=== PATIENT | female | born 1985 | race Two or more races ===

== ENCOUNTER → 2019-09-26 11:03 | Outpatient (CLI) | payer MEDICAID, SELFPAY ==
[2019-09-26 11:06] LABS: Microscopic, Urine URINE MICROSCOPIC (MICROSCOPIC)
[2019-09-26 11:26] LABS: Appearance,Urine CLEAR (Clear); Bilirubin,Urine Negative (Negative); Blood, Urine Negative (Negative); Color,Urine YELLOW (Yellow); Glucose,Urine (UA) Negative (Negative); Ketones,Urine Negative (Negative); Leukocyte Esterase,Urine TRACE (Negative); Nitrate,Urine Negative (Negative); Protein,Urine Negative (Negative); Urobilinogen,Urine 0.2 EU/dl (0.2)
[2019-09-26 11:37] LABS: Bacteria,Urine 1+ /lpf; Mucus,Urine 1+ /lpf
[2019-09-26 11:54] LABS: Basophils % 0.3 % (0.1-2.0); Eosinophils # 0.2 K/mm3 (0.0-0.4); Eosinophils % 1.7 % (0.1-12.0); Hematocrit 42.9 % (37.0-47.0); Hemoglobin 14.6 g/dL (12.2-16.2); Lymphocytes # 2.2 K/mm3 (0.7-4.5); Lymphocytes % 24.8 % (10-50); Mean Corpuscular Hemoglobin 30.6 pg (27.0-31.2); Mean Corpuscular Volume 90.2 fl (81-99); Mean Platelet Volume 9.3 fl (7.4-10.4); Monocytes # 0.3 K/mm3 (0.1-1.0); Monocytes % 3.5 % (1.7-9.3); Neutrophils # 6.2 K/mm3 (1.8-7.8); Neutrophils % 69.7 % (37.0-80.0); Platelet Count 221 K/mm3 (142-424); Red Blood Count 4.76 M/mm3 (4.20-5.40); Red Cell Distribution Width 12.9 % (11.5-17.5); White Blood Count 8.9 K/mm3 (4.8-10.8)
[2019-09-26 12:32] LABS: Anion Gap 14.1 mEq/L (5-15); Blood Urea Nitrogen 5 mg/dl (7-17); Calcium 9.2 mg/dl (8.4-10.2); Carbon Dioxide 27 mmol/L (22.0-30.0); Chloride 104 mmol/L (98-107); Estimated Glomerular Filt Rate 183 ml/min (>60); GFR (African American) 221 ML/MIN (>60); Glucose 191 mg/dl (74-100); Potassium 4.1 mmoL/L (3.5-5.1); Sodium 141 mmol/L (136-145)
[2019-09-26 15:11] LABS: Coronavirus 19 IgG Antibody Negative (Negative); Coronavirus 19 IgM Antibody Negative (Negative)
[2019-09-26 18:58] LABS: Urine Pregnancy, HCG Qual. Negative (Negative)
== END ==
PROVIDERS: Visit Provider Surgery
DX: Z01.818 Encounter for other preprocedural examination (principal); K42.0 Umbilical hernia with obstruction, without gangrene; K46.9 Unspecified abdominal hernia without obstruction or gangrene
CPT/HCPCS: 36415; 80048; 81001; 81025; 85025; 86328

== ENCOUNTER 2019-09-27 07:37 | Day surgery (SDC) | payer MEDICAID, SELFPAY ==
[2019-09-27] VITALS (17 sets, daily range): BP systolic 108–127; BP diastolic 58–84; PULSE 57–76; RESP 10–18; TEMP 36.3–43; O2SAT 90–98; BMI 39.4
[2019-09-27 08:14] LABS: POC Glucose,Bedside 229 (70-110)
--- NOTE | 2019-09-27 11:13 | HMH.OPNOTE ---
Date of procedure: 09/27/19 Pre-op Diagnosis:: Incarcerated umbilical hernia Post-op Diagnosis:: Incarcerated umbilical hernia Procedure performed:: Laparoscopic-assisted open repair of incarcerated umbilical hernia Surgeon:: Dennys Medrano MD MIXING PLANT DUMPER:: Sarthak Calderon Anesthesia: GETA Estimated blood loss (mL): 15 Operative findings:: 2 cm defect Incarcerated omentum Repair completed with 6.4 cm VentraLex plug/mesh Operative note:: After informed consent was obtained the patient was taken to the operating room and placed in the supine position. General anesthesia was induced and her abdomen was prepped and draped in a sterile fashion. After infiltration local anesthetic a small stab incision was made in the left upper quadrant. A Veress needle was placed in position. The abdomen was insufflated. A 5 mm optical trocar was placed in the left mid flank. The periumbilical region was carefully evaluated. An obvious herniation with incarcerated omentum was noted. A 5 mm trocar was placed at the Veress needle insertion site after slightly elongating the incision. A combination of external compression and careful dissection with laparoscopic bowel graspers was utilized to free the incarcerated omentum. No obvious incarcerated small bowel or colon noted. A 2 cm defect was apparent. After infiltration with local anesthetic a supraumbilical incision was made. The deeper subcutaneous tissue was dissected with a combination of scalpel, electrocautery, and blunt dissection. The hernia sac was carefully resected with electrocautery. A 12 mm trocar was placed through the defect and the 6.4 cm VentraLex plug/mesh was then secured in position after being placed through the trocar. The mesh/plug was secured with interrupted 0 Ethibond. The fascial defect was then closed primarily over the mesh with 0 Ethibond. The wound was thoroughly irrigated. The umbilical stump was reapproximated with interrupted Vicryl. Skin was then closed with interrupted 4-0 Monocryl. The skin at the trocar sites was also closed in a similar manner. Dressings were applied and the patient was transferred to recovery in stable condition after extubation. Condition: stable Disposition: PACU Specimens:: None Complications:: No immediate
--- NOTE | 2019-09-27 11:24 | HMH.ANESCL ---
[facility] Anesthesia Checklist - Patient Identification Patient Identification: Arm Band, Verbal (Name & ) - Structural Data Admitted From: Home Planned Operative Procedure/s: Laparoscopic umbilical hernia with Mesh Consent for Planned Operative Procedure(s) Verified: Yes Verified Documents: Surgical Consent, History and Physical - NPO Status Verified Time NPO: 00:00 - Chart Verification Results Verified: None - Additional verifications Fingerstick Blood Glucose: 229 Patient : No Anesthesia Reactions: No Hx Blood Transfusions: No Blood Transfusion Reaction: No - Airway Assessment C-Spine Mobility Assessed: Yes TMJ Mobility Assessed: Yes Dentition: Poor Dentition (Loose front tooth, missing teeth) - Neurological Assessment Level of Consciousness: Awake, Alert, Appropriate, Follows Commands Hx Seizures: No Numbness or tingling in extremities: No - Anesthesia Plan Anesthesia Risk discussed: Yes Anesthesia Plan: Verified ASA Class: III Anesthesia Type: General [facility] History I have reviewed the patient's past medical history: Yes Medical History: Reports:: Diabetes Mellitus Type 2, Hyperlipidemia Denies:: Cancer, Diabetes Mellitus Type 1, Internal Pacemaker, MRSA, Seizures *Have you ever received a pneumonia vaccine?: No *Have you received a flu vaccine this season?: No Other Medical History: Denies: Blood Transfusion Reaction Comment:: morbid obesity Anesthesia experience/problems:: None Other Surgeries: Yes: No Previous Surgery. No: Pacemaker Amputation: No - *Social History Last grade of school completed: 5th or 6th Smoking Status: Never smoker # Packs/Day (cigarettes): 0 #Yrs smoked (if former smoker): 0 Alcohol Intake: never Alcohol Intake Frequency:: other Substance Use Type: denies use *Occupational Status:: unemployed Housing: house Household Members: spouse *Travel in the last 8 weeks: None Family Hx:: Diabetes
--- NOTE | 2019-09-27 11:26 | P.PN_ITS ---
[facility] Anesthesia Record Part I Intake, IV Amount: 900 Estimated blood loss (mL): 10 Urine output (mL): 0 (NM) Blood Products used (#): none Blood Pressure: 122/84 SaO2: 93 Pulse Rate: 76 Respiratory Rate: 10 Temperature: 97.5 F Patient is:: Drowsy, Nasal O2, Stable Stable to PACU at:: 11:20
[2019-09-27 11:39] LABS: POC Glucose,Bedside 221 (70-110)
--- NOTE | 2019-09-27 18:56 | HMH.ANESII ---
[facility] Anesthesia Record Part II Discharge Time: 11:50 Destination: Surgical Day Care (OP Surgery) PACU nurse assessment reviewed?: Yes Patient Condition:: Good Anesthesia Complications:: None Swallowing reflex intact?: Yes Cyanosis?: No Blood Pressure: 108/72 Pulse Rate: 66 Temperature: 97.5 F Mental Status: Alert & Oriented Pain level:: 5 Nausea and/or vomitting:: None Intake, IV Amount: 0 (normovolemia)
== END 2019-09-27 13:10 | disposition home or self-care (01) ==
LOC: OR 07:39
PROVIDERS: PCP Nurse Practitioner Family; Visit Provider Surgery
PROC: 0WQF4ZZ Repair Abdominal Wall, Percutaneous Endoscopic Approach (ICD-10-PCS; CPT 49653; principal; 2019-09-27 09:00)
DX: K42.0 Umbilical hernia with obstruction, without gangrene (principal); E11.9 Type 2 diabetes mellitus without complications; E78.5 Hyperlipidemia, unspecified
CPT/HCPCS: 49653; 82962; 96374; C1781; J2405; J2710

== ENCOUNTER 2020-06-19 21:03 | Emergency (ER) | payer OTHER, SELFPAY ==
[2020-06-19 22:15] VITALS: BP 130/104; PULSE 98; RESP 16; TEMP 36.7; O2SAT 100; BMI 44.3
[2020-06-19 23:26] LABS: Basophils % 0.3 % (0.1-2.0); Eosinophils # 0.2 K/mm3 (0.0-0.4); Eosinophils % 1.2 % (0.1-12.0); Hematocrit 42.1 % (37.0-47.0); Lymphocytes # 2.3 K/mm3 (0.7-4.5); Lymphocytes % 18.8 % (10-50); Mean Corpuscular HGB Conc 33.4 g/dL (31.8-35.4); Mean Corpuscular Hemoglobin 29.3 pg (27.0-31.2); Mean Corpuscular Volume 87.7 fl (81-99); Monocytes # 0.5 K/mm3 (0.1-1.0); Monocytes % 4.3 % (1.7-9.3); Neutrophils # 9.1 K/mm3 (1.8-7.8); Neutrophils % 75.4 % (37.0-80.0); Platelet Count 255 K/mm3 (142-424); Red Cell Distribution Width 13.7 % (11.5-17.5); White Blood Count 12.1 K/mm3 (4.8-10.8)
[2020-06-19 23:31] LABS: Alanine Aminotransferase 33 U/L (12-78); Albumin Level 4.5 g/dl (3.5-5.0); Albumin/Globulin Ratio 1.3 (1.1-1.8); Alkaline Phosphatase 103 U/L (38-126); Anion Gap 9.8 mEq/L (5-15); Aspartate Amino Transferase 34 U/L (14-36); Bilirubin,Total 0.3 mg/dl (0.2-1.3); Blood Urea Nitrogen 11 mg/dl (7-17); Calcium 9.6 mg/dl (8.4-10.2); Carbon Dioxide 28 mmol/L (22.0-30.0); Chloride 106 mmol/L (98-107); Creatinine Clearance Estimated 81 mL/min (50-200); Estimated Glomerular Filt Rate 95 ml/min (>60); GFR (African American) 115 ML/MIN (>60); Globulin 3.4 g/dL (1.3-3.2); Glucose 150 mg/dl (74-100); Potassium 3.8 mmoL/L (3.5-5.1); Sodium 140 mmol/L (136-145); Total Protein,Serum 7.9 g/dl (6.3-8.2)
[2020-06-19 23:36] LABS: C-Reactive Protein 10.5 mg/L (0-4)
[2020-06-19 23:50] LABS: Procalcitonin 0.042 ng/mL (0.0-2.0)
[2020-06-19 23:52] LABS: Erythrocyte Sedimentation Rate 24 mm/hr (0-20)
--- NOTE | 2020-06-20 00:09 | HMH.EDGENADL ---
ED Disposition Clinical Impression: Lower extremity pain, bilateral Disposition: Home, Self-Care Condition on Discharge: Good Instructions: DI for Acute Pain -- Adult Additional Instructions: will do doppler in am and ask pt to see pcp for follow up Referrals: Hannah Limon [Primary Care Provider] - - Critical Care Critical Care Time: No Attestation: On 06/19/20, the high probability of a clinically significant, sudden or life threatening deterioration of the following system(s) required my full and direct attention, intervention and personal management. The time I documented below is in addition to time spent performing reported procedures but includes the following listed in this critical care notation. Medical Decision Making - Medical Records Medical records reviewed: Yes: I reviewed the patient's medical records. - Tyrese Inquiry Pt receiving controlled substance: No Vital Signs: 06/19/20 22:15 Temperature 98.1 F Temperature Source Oral Pulse Rate [Right] 98 H Respiratory Rate 16 Blood Pressure [Right Arm] 130/104 H Blood Pressure Mean [Right Arm] 112 Blood Pressure Source [Right Arm] Automatic Cuff 02 Sat by Pulse Oximetry 100 Oxygen Delivery Method Room Air - Lab Data Lab results reviewed: Yes: I reviewed the patient's lab results. Lab Results 06/19/20 22:10: WBC 12.1 H, RBC 4.80, Hgb 14.0, Hct 42.1, MCV 87.7, MCH 29.3, MCHC 33.4, RDW 13.7, Plt Count 255, MPV 9.0, Neut % (Auto) 75.4, Lymph % (Auto) 18.8, [place] % (Auto) 4.3, Eos % (Auto) 1.2, Baso % (Auto) 0.3, Neut # (Auto) 9.1 H, Lymph # (Auto) 2.3, [place] # (Auto) 0.5, Eos # (Auto) 0.2, Baso # (Auto) 0.0, ESR 24 H 06/19/20 22:10: Sodium 140, Potassium 3.8, Chloride 106, Carbon Dioxide 28, Anion Gap 9.8, BUN 11, Creatinine 0.70, Estimated Creat Clear 81, Estimated GFR 95, Est GFR ( Amer) 115, Glucose 150 H, Calcium 9.6, Total Bilirubin 0.3, AST 34, ALT 33, Alkaline Phosphatase 103, C-Reactive Protein 10.5 H, Total Protein 7.9, Albumin 4.5, Globulin 3.4 H, Albumin/Globulin Ratio 1.3, Procalcitonin 0.042 Result diagrams: 06/19/20 22:10 06/19/20 22:10 Medical Decision Narrative: will need venous doppler in am and will give lovenox tonight General Adult HPI - General Chief complaint: PAIN Stated complaint: J&J Vac feeling leg pain Time Seen by Provider: 06/20/20 00:00 Mode of Arrival: Ambulatory Source of Information: Patient, Relative, Medical Record Limitations: No Limitations Description of Symptoms (Recalled from ER Triage Doc. by RN): Pt c/o bilat leg pain that began on thursday 06/15, went away and then it came back again today and they feel swollen. No pitting edema noted. Pt is a diabetic, receives Depo for control, and received the J&J Covid vaccine on 06/04/20. She denies any trauma, falls, or h/o blood clots - History of Present Illness HPI narrative: has bilat lower ext pain over the last few days - had recent covid-19 vaccine - does use depo- no hx of dvt /pul emboli Onset (ago): day(s) Location: lower extremity Severity: moderate Associated symptoms: denies other symptoms Treatments prior to arrival: none - Related Data Home Medications Medication Instructions Recorded Confirmed Atorvastatin Calcium [Lipitor 10mg 10 mg PO HS 09/27/19 06/19/20 Tab] Metformin HCl [Glucophage Xr] 500 mg PO DAILY 09/27/19 06/19/20 Sitagliptin Phosphate [Januvia 100 mg PO DAILY 09/27/19 06/19/20 100mg tablet] Aspirin [Aspirin 81mg chewable 81 mg PO DAILY 06/19/20 06/19/20 tab] Insulin Glargine,Hum.rec.anlog 30 units SQ DAILY 06/19/20 06/19/20 [Lantus Solostar 100 Units/mL 3mL flexpen] Pioglitazone HCl 30 mg PO DAILY 06/19/20 06/19/20 Allergies Allergy/AdvReac Type Severity Reaction Status Date / Time No Known Allergies Allergy Verified 06/17/20 10:52 [facility] History - Hepatitis A Screen Drug use history?: No High risk sexual behaviors?: No History of sexually transmitted infecti
--- NOTE | 2020-06-20 00:27 | PC.NURSE ---
s/w Kevin Salmeron on-pharmcy for lovenox dosing.
[2020-06-20 00:39] VITALS: BP 125/87; PULSE 90; RESP 19; TEMP 36.9; O2SAT 99
== END 2020-06-20 00:41 | disposition home or self-care (01) ==
PROVIDERS: Emergency Provider Emergency Medicine; PCP Nurse Practitioner Family
DX: I82.401 Acute embolism and thrombosis of unspecified deep veins of right lower extremity (principal); E11.65 Type 2 diabetes mellitus with hyperglycemia; E78.5 Hyperlipidemia, unspecified; I10 Essential (primary) hypertension; Z79.899 Other long term (current) drug therapy
CPT/HCPCS: 80053; 84145; 85025; 85378; 85651; 86140; 96372; 99282

== ENCOUNTER → 2020-06-20 12:15 | Outpatient (CLI) | payer OTHER, SELFPAY ==
--- NOTE | 2020-06-20 | CA_ITS ---
APPROVED REPORT Bilateral Lower Extremity Venous Study for Cream Ripener: CN Risk Factors bilateral leg pain without swelling, Patient recieved J&J vaccine 06/07/2020, dm Past History Bilat leg pain s/p J7J vaccine 06/07/2020 Vein Imaging CFV (R): compressive, spontaneous, phasic, augmentation FEM (R): compressive, spontaneous, phasic, augmentation POP (R): compressive, spontaneous, phasic, augmentation DFV (R): compressive, spontaneous, phasic, augmentation PTV (R): Thrombus, Non-Compressible GSV (R): compressive, spontaneous, phasic, augmentation Peroneals (R):compressive, spontaneous, phasic, augmentation GAS (R): compressive, spontaneous, phasic, augmentation CFV (L): compressive, spontaneous, phasic, augmentation FEM (L): compressive, spontaneous, phasic, augmentation POP (L): compressive, spontaneous, phasic, augmentation DFV (L): compressive, spontaneous, phasic, augmentation PTV (L): compressive, spontaneous, phasic, augmentation GSV (L): compressive, spontaneous, phasic, augmentation Peroneals (L):compressive, spontaneous, phasic, augmentation GAS (L): compressive, spontaneous, phasic, augmentation Findings The right Posterior Tibial Vein is dilated with mixed echoes and is non-compressible. Color flow duplex of the right lower extremity demonstrates acute occlusive DVT involving the following Vein:Posterior Tibial. No evidence of DVT or superficial thrombophlebitis in the veins scanned of the left lower extremity. Conclusion The right Posterior Tibial Vein is dilated with mixed echoes and is non-compressible. Color flow duplex of the right lower extremity demonstrates acute occlusive DVT involving the following Vein:Posterior Tibial. No evidence of DVT or superficial thrombophlebitis in the veins scanned of the left lower extremity. Electronically signed by : Yosef Rutherford MD 06/22/2020 18:33:06
== END ==
PROVIDERS: PCP Emergency Medicine; Visit Provider Emergency Medicine
DX: M79.662 Pain in left lower leg (principal); M79.661 Pain in right lower leg; R60.0 Localized edema
CPT/HCPCS: 93970

== ENCOUNTER 2020-06-20 13:14 | Emergency (ER) | payer OTHER, SELFPAY ==
[2020-06-20 13:14] VITALS: BP 136/91; PULSE 65; RESP 16; TEMP 37.1; O2SAT 98; BMI 34.9
--- NOTE | 2020-06-20 13:16 | HMH.EDGENADL ---
ED Disposition Clinical Impression: DVT (deep venous thrombosis) Qualifiers: DVT location: lower extremity Affected thrombotic vein of extremity: popliteal Chronicity: acute Laterality: right Qualified Code(s): I82.431 - Acute embolism and thrombosis of right popliteal vein Disposition: Home, Self-Care Condition on Discharge: Fair Instructions: DI for Deep Vein Thrombosis, Apixaban Additional Instructions: You have been evaluated for right lower extremity DVT. Please take anticoagulation, Eliquis. It is very important that you follow-up with your primary care doctor in 24 to 48 hours. Return to the emergency department for any new or worsening symptoms, leg pain, swelling, color changes, chest pain, shortness of breath. Prescriptions: Apixaban [Eliquis 5mg Tablet] 10 mg PO BID 7 Days #28 tab Transmission Status: Pending to [facility] Referrals: Deshawn Cowan MD [Staff Physician] - Time of Disposition: 13:24 - Critical Care Critical Care Time: No Attestation: On , the high probability of a clinically significant, sudden or life threatening deterioration of the following system(s) required my full and direct attention, intervention and personal management. The time I documented below is in addition to time spent performing reported procedures but includes the following listed in this critical care notation. Medical Decision Making - Medical Records Medical records reviewed: Yes: I reviewed the patient's medical records. - Tyrese Inquiry Pt receiving controlled substance: No Orders (Tests/Meds): ORDERS Category Date Time Status Urine , HCG Qual. Stat Lab 06/20/20 13:16 Ordered Medical Decision Narrative: In summary this is a 35-year-old female presenting to the emergency department after finding of a right posterior popliteal DVT. She has slight tenderness to palpation over the right calf, circumference slightly larger than left. Patient has strong peripheral pulses in both feet. No color change. Overall presentation most consistent with DVT. Counseled patient that she will need to be on anticoagulation for at least 14 days if not 30 days or longer. Recommended novel oral anticoagulants. Gave her starter pack of Eliquis, 10 mg twice daily. Recommended close follow-up with her PCP. Stable for discharge. General Adult HPI - General Stated complaint: blood clot Time Seen by Provider: 06/20/20 13:16 Mode of Arrival: Ambulatory Source of Information: Patient Limitations: No Limitations - History of Present Illness HPI narrative: 35-year-old female presenting to the emergency department with right calf pain. Symptoms started 6 days ago. [place] like a sore muscle in the back of her calf, radiating toward her ankle, on the mid side. Pain has improved since onset. Now just feels like an occasional pain. No numbness, weakness, tingling in her right foot or toes. No pain higher in her leg. No skin changes. She recently started control OCP 3 days ago. Previously had Depo shots. She is G5, P5. Does not believe she is today. Was seen in our emergency department yesterday where there was concern for DVT. She had a lower extremity ultrasound performed today that revealed a right posterior popliteal DVT. No recent surgery, immobility. No history of DVT or PE. She denies family history of hypercoagulable state. Currently does not have chest pain, shortness of breath, pain in the left extremity. - Related Data Home Medications Medication Instructions Recorded Confirmed Atorvastatin Calcium [Lipitor 10mg 10 mg PO HS 09/27/19 06/19/20 Tab] Metformin HCl [Glucophage Xr] 500 mg PO DAILY 09/27/19 06/19/20 Sitagliptin Phosphate [Januvia 100 mg PO DAILY 09/27/19 06/19/20 100mg tablet] Aspirin [Aspirin 81mg chewable 81 mg PO DAILY 06/19/20 06/19/20 tab] Insulin Glargine,Hum.rec.anlog 30 units SQ DAILY 06/19/20 06/19/20 [Lantus Solostar 100 Units/mL 3mL
[2020-06-20 13:30] LABS: Urine Pregnancy, HCG Qual. Negative (Negative)
[2020-06-20 13:37] VITALS: BP 136/91; PULSE 65; RESP 16; TEMP 37.1; O2SAT 98
== END 2020-06-20 13:43 | disposition home or self-care (01) ==
PROVIDERS: Emergency Provider Emergency Medicine; PCP Nurse Practitioner Family
DX: I82.431 Acute embolism and thrombosis of right popliteal vein (principal); I10 Essential (primary) hypertension; E78.5 Hyperlipidemia, unspecified; E11.9 Type 2 diabetes mellitus without complications; Z79.4 Long term (current) use of insulin; Z79.84 Long term (current) use of oral hypoglycemic drugs; Z79.899 Other long term (current) drug therapy
CPT/HCPCS: 81025; 99282

== ENCOUNTER → 2020-09-01 08:55 | Outpatient (CLI) | payer OTHER, SELFPAY ==
--- NOTE | 2020-09-01 08:57 | CA_ITS ---
APPROVED REPORT Bilateral Lower Extremity Venous Study for DVT. Systems Support Officer: JAKE Indications Previous DVT of Right PTV 06/2019 Risk Factors Obesity Vein Imaging CFV (R): compressive, spontaneous, phasic, augmentation SFJ (R): compressive, spontaneous, phasic, augmentation FEM (R): compressive, spontaneous, phasic, augmentation POP (R): compressive, spontaneous, phasic, augmentation PTV (R): compressive, spontaneous, phasic, augmentation GSV (R): compressive, spontaneous, phasic, augmentation SSV (R): compressive, spontaneous, phasic, augmentation Peroneals (R):compressive, spontaneous, phasic, augmentation GAS (R): compressive, spontaneous, phasic, augmentation CFV (L): compressive, spontaneous, phasic, augmentation SFJ (L): compressive, spontaneous, phasic, augmentation FEM (L): compressive, spontaneous, phasic, augmentation POP (L): compressive, spontaneous, phasic, augmentation PTV (L): compressive, spontaneous, phasic, augmentation GSV (L): compressive, spontaneous, phasic, augmentation SSV (L): compressive, spontaneous, phasic, augmentation Peroneals (L):compressive, spontaneous, phasic, augmentation GAS (L): compressive, spontaneous, phasic, augmentation Findings Color flow duplex demonstrates no evidence of DVT of the following bilateral lower extremity Veins:Common Femoral Vein, Femoral Vein, Popliteal Vein, Posterior Tibial Veins, Peroneal Veins. Negative for DVT. Conclusion Negative for DVT. Electronically signed by : Yosef Rutherford MD 09/01/2020 17:00:33
== END ==
PROVIDERS: PCP Nurse Practitioner Family; Visit Provider Nurse Practitioner Family
DX: I82.401 Acute embolism and thrombosis of unspecified deep veins of right lower extremity (principal)
CPT/HCPCS: 93970

== ENCOUNTER 2021-01-01 12:55 | Inpatient (IN) | payer OTHER, SELFPAY ==
[2021-01-01] VITALS (11 sets, daily range): BP systolic 110–148; BP diastolic 63–92; PULSE 54–82; RESP 16–20; TEMP 36.7–36.9; O2SAT 96–100; BMI 43.4; BMI 42.0; BMI 43.0
--- NOTE | 2021-01-01 13:29 | XR_ITS ---
PROCEDURE: XR CHEST 2V CLINICAL HISTORY: cough Burning and tightness in chest for 2 days COMPARISON: No exams were available for comparison FINDINGS: The cardiomediastinal silhouette and pulmonary vascularity are within normal limits considering a somewhat poor inspiration in this rather large patient. The lungs are clear without infiltrates, suspicious nodules, or pleural effusions. No acute bony abnormalities. There are mild degenerate changes lower thoracic spine. IMPRESSION: No acute findings. Dictated by: Dr. Babar Michael MD 01/01/2021 13:55 Dr. Babar Michael MD in [place] 01/01/2021 13:55
--- NOTE | 2021-01-01 13:39 | HMH.EDUTC ---
[facility] Disposition Condition on Discharge: Fair Time of Disposition: 17:49 <Brenden Ibarra - Last Filed: 01/01/21 17:50> Condition on Discharge: Good <Sandi Fatima E - Last Filed: 01/01/21 19:28> Clinical Impression: NSTEMI (non-ST elevated myocardial infarction), Transaminitis Chest pain Qualifiers: Chest pain type: unspecified Qualified Code(s): R07.9 - Chest pain, unspecified Disposition: Admitted as Observation Medical Decision Making - Medical Records Medical records reviewed: Yes: I reviewed the patient's medical records. - Tyrese Inquiry Pt receiving controlled substance: No - Lab Data Lab results reviewed: Yes: I reviewed the patient's lab results. Result diagrams: 01/01/21 14:05 01/01/21 14:05 - Radiology Data #1 Image(s): Chest Image Reviewed: Yes I reviewed the patient's radiology results, Yes I have reviewed radiologist's interpretation Preliminary Findings: Normal/NAD - CT Data CT Scan: Abdomen, Pelvis Time Received: 17:00 Preliminary Findings: Abnormal - ECG Data Tracing #1 I reviewed this ECG and interpreted as documented below: ECG initial impression date: 01/01/21 ECG initial impression time: 14:03 <Brenden Ibarra - Last Filed: 01/01/21 17:50> - Tyrese Inquiry Pt receiving controlled substance: No Tyrese was queried for this patient: No - Lab Data Result diagrams: 01/01/21 14:05 01/01/21 14:05 - Radiology Data #1 Image(s): Chest Image Reviewed: Yes I have reviewed radiologist's interpretation Preliminary Findings: Normal/NAD <Sandi Fatima E - Last Filed: 01/01/21 19:28> Vital Signs: 01/01/21 13:05 01/01/21 14:00 01/01/21 14:30 Temperature 98.5 F 98.3 F Temperature Source Oral Oral Pulse Rate Pulse Rate [Left] 72 66 75 Respiratory Rate 18 16 18 Blood Pressure Blood Pressure [Right Arm] 146/83 H 148/63 H Blood Pressure Mean [Right Arm] 104 91 Blood Pressure Source Blood Pressure Source [Right Arm] Blood Pressure Position Blood Pressure Position [Right Arm] 02 Sat by Pulse Oximetry 96 98 100 Oxygen Delivery Method Room Air 01/01/21 15:17 01/01/21 16:07 01/01/21 16:39 Temperature Temperature Source Pulse Rate Pulse Rate [Left] 54 L 62 54 L Respiratory Rate 18 18 16 Blood Pressure Blood Pressure [Right Arm] 131/92 H 126/74 118/89 Blood Pressure Mean [Right Arm] 105 91 98 Blood Pressure Source Blood Pressure Source [Right Arm] Automatic Cuff Blood Pressure Position Blood Pressure Position [Right Arm] Sitting 02 Sat by Pulse Oximetry 98 98 98 Oxygen Delivery Method Room Air 01/01/21 17:17 01/01/21 17:37 01/01/21 19:01 Temperature 98.3 F Temperature Source Oral Pulse Rate 70 Pulse Rate [Left] 68 82 Respiratory Rate 16 20 16 Blood Pressure 122/70 Blood Pressure [Right Arm] 110/71 122/76 Blood Pressure Mean [Right Arm] 84 91 Blood Pressure Source Automatic Cuff Blood Pressure Source [Right Arm] Automatic Cuff Blood Pressure Position Sitting Blood Pressure Position [Right Arm] Sitting 02 Sat by Pulse Oximetry 99 98 Oxygen Delivery Method Room Air Room Air - Lab Data Lab Results 01/01/21 14:05: WBC 7.8, RBC 4.66, Hgb 14.0, Hct 42.6, MCV 91.4, MCH 30.1, MCHC 32.9, RDW 13.8, Plt Count 213, MPV 9.3, Neut % (Auto) 74.9, Lymph % (Auto) 18.3, [place] % (Auto) 4.3, Eos % (Auto) 2.0, Baso % (Auto) 0.5, Neut # (Auto) 5.8, Lymph # (Auto) 1.4, [place] # (Auto) 0.3, Eos # (Auto) 0.2, Baso # (Auto) 0.0 01/01/21 14:05: Sodium 138, Potassium 3.7, Chloride 103, Carbon Dioxide 27, Anion Gap 11.7, BUN 8, Creatinine 0.30 L, Estimated Creat Clear 198, Estimated GFR 253, Est GFR ( Amer) 306, Glucose 166 H, Calcium 8.8, Total Bilirubin 0.4, AST 86 H, ALT 103 H, Alkaline Phosphatase 127 H, Troponin I 0.03, Total Protein 7.4, Albumin 4.0, Globulin 3.4 H, Albumin/Globulin Ratio 1.2 01/01/21 16:20: Troponin I 0.44 H 01/01/21 17:50: SARS-CoV-2 (PCR) Not detected, Influenza A Untype (PCR) Not d
--- NOTE | 2021-01-01 13:42 | PC.NURSE ---
pt is now c/o chest pain. pt stated it started while she was on her way back from the radiology
--- NOTE | 2021-01-01 14:02 | ECG_ITS ---
APPROVED REPORT Exam: Resting ECG HR:52 bpm ECG Measurements Heart Rate 52 AXES MT 176 P 39 QRSd 82 QRS 18 QT 430 T 25 QTc 399 Conclusion Sinus bradycardia Otherwise normal ECG Electronically signed by : Levon Campos MD 01/02/2021 08:20:57
[2021-01-01 14:18] LABS: Basophils % 0.5 % (0.1-2.0); Eosinophils # 0.2 K/mm3 (0.0-0.4); Hematocrit 42.6 % (37.0-47.0); Lymphocytes # 1.4 K/mm3 (0.7-4.5); Lymphocytes % 18.3 % (10-50); Mean Corpuscular HGB Conc 32.9 g/dL (31.8-35.4); Mean Corpuscular Hemoglobin 30.1 pg (27.0-31.2); Mean Corpuscular Volume 91.4 fl (81-99); Mean Platelet Volume 9.3 fl (7.4-10.4); Monocytes # 0.3 K/mm3 (0.1-1.0); Monocytes % 4.3 % (1.7-9.3); Neutrophils # 5.8 K/mm3 (1.8-7.8); Neutrophils % 74.9 % (37.0-80.0); Platelet Count 213 K/mm3 (142-424); Red Blood Count 4.66 M/mm3 (4.20-5.40); Red Cell Distribution Width 13.8 % (11.5-17.5); White Blood Count 7.8 K/mm3 (4.8-10.8)
[2021-01-01 14:33] LABS: Chloride 103 mmol/L (98-107); Potassium 3.7 mmoL/L (3.5-5.1); Sodium 138 mmol/L (136-145)
[2021-01-01 14:35] LABS: Blood Urea Nitrogen 8 mg/dl (7-17); Creatinine Clearance Estimated 198 mL/min (50-200); Estimated Glomerular Filt Rate 253 ml/min (>60); GFR (African American) 306 ML/MIN (>60)
[2021-01-01 14:36] LABS: Alanine Aminotransferase 103 U/L (12-78); Albumin/Globulin Ratio 1.2 (1.1-1.8); Alkaline Phosphatase 127 U/L (38-126); Anion Gap 11.7 mEq/L (5-15); Aspartate Amino Transferase 86 U/L (14-36); Bilirubin,Total 0.4 mg/dl (0.2-1.3); Calcium 8.8 mg/dl (8.4-10.2); Carbon Dioxide 27 mmol/L (22.0-30.0); Globulin 3.4 g/dL (1.3-3.2); Glucose 166 mg/dl (74-100); Total Protein,Serum 7.4 g/dl (6.3-8.2)
[2021-01-01 14:48] LABS: Troponin I 0.03 ng/ml (0.00-0.034)
--- NOTE | 2021-01-01 14:57 | CT_ITS ---
PROCEDURE: CT ABDOMEN PELVIS W CON CLINICAL INDICATION: elevated liver enzymes COMPARISON: No exams were available for comparison TECHNIQUE: IV Contrast: 75ML Isovue 370 Oral Contrast None Axial images obtained with sagittal and coronal reformats. All CT scans at the facility use one or more dose reduction, viz: automated exposure control, ma/kV adjustment per patient size (including targeted exams where dose is matched to indication, i.e. head), or iterative reconstruction technique. FINDINGS: LOWER THORAX: Left lingular subsegmental atelectasis. 6 millimeter nodule medial basal segment left lower lobe. ABDOMEN & PELVIS: hepatic parenchyma appears unremarkable. Spleen is not enlarged. Pancreas and adrenal glands appear unremarkable. There is a right renal cyst. Bilateral ureters appear unremarkable uterus and ovaries appear unremarkable. Bladder appears unremarkable. There pelvic phleboliths. GE junction, stomach, small bowel, and colon appear unremarkable. There is no lymphadenopathy. There are mild degenerative changes of bilateral SI joints. There is lumbar spondylosis. IMPRESSION: 1. Pulmonary nodule measuring 6 millimeters within medial basal segment left lower lobe. Fleischner society guidelines (2017) recommend CT chest without contrast at 6-[address] at 18-24 months. 2. Mild degenerative changes of bilateral SI joints. 3. Lumbar spondylosis. Dictated by: Radha Begum MD 01/01/2021 15:57 Radha Begum MD in [place] 01/01/2021 15:57
[2021-01-01 17:33] LABS: Troponin I 0.44 ng/ml (0.00-0.034)
--- NOTE | 2021-01-01 17:40 | PC.NURSE ---
TAMARA CEDENO spoke with Dr. Cowan at this time
--- NOTE | 2021-01-01 17:42 | PC.NURSE ---
notified house mother of admission
--- NOTE | 2021-01-01 17:50 | HMH.EDGENADL ---
ED Disposition Clinical Impression: NSTEMI (non-ST elevated myocardial infarction), Transaminitis Chest pain Qualifiers: Chest pain type: unspecified Qualified Code(s): R07.9 - Chest pain, unspecified Disposition: Admitted as Observation Condition on Discharge: Good Referrals: Provider,Referral, [Primary Care Provider] - Time of Disposition: 17:51 - Critical Care Critical Care Time: No Attestation: On 01/01/21, the high probability of a clinically significant, sudden or life threatening deterioration of the following system(s) required my full and direct attention, intervention and personal management. The time I documented below is in addition to time spent performing reported procedures but includes the following listed in this critical care notation. Medical Decision Making - Medical Records Medical records reviewed: Yes: I reviewed the patient's medical records. - Tyrese Inquiry Pt receiving controlled substance: No Vital Signs: 01/01/21 13:05 01/01/21 14:00 01/01/21 14:30 Temperature 98.5 F 98.3 F Temperature Source Oral Oral Pulse Rate [Left] 72 66 75 Respiratory Rate 18 16 18 Blood Pressure [Right Arm] 146/83 H 148/63 H Blood Pressure Mean [Right Arm] 104 91 Blood Pressure Source [Right Arm] Blood Pressure Position [Right Arm] 02 Sat by Pulse Oximetry 96 98 100 Oxygen Delivery Method Room Air 01/01/21 15:17 01/01/21 16:07 01/01/21 16:39 Temperature Temperature Source Pulse Rate [Left] 54 L 62 54 L Respiratory Rate 18 18 16 Blood Pressure [Right Arm] 131/92 H 126/74 118/89 Blood Pressure Mean [Right Arm] 105 91 98 Blood Pressure Source [Right Arm] Automatic Cuff Blood Pressure Position [Right Arm] Sitting 02 Sat by Pulse Oximetry 98 98 98 Oxygen Delivery Method Room Air 01/01/21 17:17 01/01/21 17:37 Temperature Temperature Source Pulse Rate [Left] 68 82 Respiratory Rate 16 20 Blood Pressure [Right Arm] 110/71 122/76 Blood Pressure Mean [Right Arm] 84 91 Blood Pressure Source [Right Arm] Automatic Cuff Blood Pressure Position [Right Arm] Sitting 02 Sat by Pulse Oximetry 99 98 Oxygen Delivery Method Room Air - Lab Data Lab results reviewed: Yes: I reviewed the patient's lab results. Lab Results 01/01/21 14:05: WBC 7.8, RBC 4.66, Hgb 14.0, Hct 42.6, MCV 91.4, MCH 30.1, MCHC 32.9, RDW 13.8, Plt Count 213, MPV 9.3, Neut % (Auto) 74.9, Lymph % (Auto) 18.3, [place] % (Auto) 4.3, Eos % (Auto) 2.0, Baso % (Auto) 0.5, Neut # (Auto) 5.8, Lymph # (Auto) 1.4, [place] # (Auto) 0.3, Eos # (Auto) 0.2, Baso # (Auto) 0.0 01/01/21 14:05: Sodium 138, Potassium 3.7, Chloride 103, Carbon Dioxide 27, Anion Gap 11.7, BUN 8, Creatinine 0.30 L, Estimated Creat Clear 198, Estimated GFR 253, Est GFR ( Amer) 306, Glucose 166 H, Calcium 8.8, Total Bilirubin 0.4, AST 86 H, ALT 103 H, Alkaline Phosphatase 127 H, Troponin I 0.03, Total Protein 7.4, Albumin 4.0, Globulin 3.4 H, Albumin/Globulin Ratio 1.2 01/01/21 16:20: Troponin I 0.44 H Result diagrams: 01/01/21 14:05 01/01/21 14:05 Orders (Tests/Meds): ED MEDICATIONS Generic Name Dose Route Start Last Admin Trade Name Freq PRN Reason Stop Dose Admin Docusate Sodium 100 mg 01/02/21 09:00 Docusate Sodium 100 Mg Capsule PO 02/01/21 08:59 DAILY [facility] Enoxaparin Sodium 40 mg 01/02/21 09:00 Enoxaparin 40mg/0.4ml Syringe SQ 02/01/21 08:59 DAILY [facility] Lactated Ringer's 1,000 mls @ 100 mls/hr 01/01/21 17:45 Lactated Ringer's 1000 Ml Bag IV 01/31/21 17:44 .Q10H [facility] Insulin Human Lispro 0 unit 01/01/21 21:00 Humalog 100 Units/Ml 3ml Vial (Ssi) SQ 01/31/21 20:59 ACHS [facility] Protocol Ondansetron HCl 4 mg 01/01/21 17:40 Ondansetron 4mg/2ml Vial IV 01/31/21 17:39 Q8HP PRN Nausea Discontinued Medications Generic Name Dose Route Start Last Admin Trade Name Freq PRN Reason Stop Dose Admin Iopamidol 75 ml 01/01/21 15:37 01/01/21 15:37 Iopamidol-370
[2021-01-01 17:52] LABS: Coronavirus 19, PCR Not Detected (NotDetected); Influenza A, PCR Not Detected (NotDetected); Influenza B, PCR Not Detected (NotDetected)
--- NOTE | 2021-01-01 19:18 | PC.NURSE ---
patient up to floor via wheelchair @ this time
[2021-01-01 19:56] LABS: POC Glucose,Bedside 114 (70-110)
[2021-01-01 21:06] LABS: Troponin I 1.83 ng/ml (0.00-0.034)
--- NOTE | 2021-01-01 23:01 | CT_ITS ---
PROCEDURE INFORMATION: Exam: CTA Chest With Contrast Exam date and time: 01/01/2021 11:01 PM Age: 35 years old Clinical indication: Shortness of breath; Additional info: SOB RO pe TECHNIQUE: Imaging protocol: Computed tomographic angiography of the chest with contrast. 3D rendering (Not supervised by radiologist): MIP and/or 3D reconstructed images were created by the technologist. Radiation optimization: All CT scans at this facility use at least one of these dose optimization techniques: automated exposure control; mA and/or kV adjustment per patient size (includes targeted exams where dose is matched to clinical indication); or iterative reconstruction. Contrast material: ISOVUE 370; Contrast volume: 70 ml; Contrast route: INTRAVENOUS (IV); COMPARISON: CR XR CHEST 2V 01/01/2021 1:27 PM FINDINGS: Pulmonary arteries: Normal. No pulmonary emboli. Aorta: Unremarkable. No aortic aneurysm. No aortic dissection. Lungs: 7 mm nodule in the left lung base (image 92 series 5). No acute interstitial or airspace disease. Pleural spaces: Unremarkable. No pneumothorax. No pleural effusion. Heart: Unremarkable. No cardiomegaly. No pericardial effusion. Mediastinal space: Calcified mediastinal granulomas are of no clinical concern. Lymph nodes: Unremarkable. No enlarged lymph nodes. Liver: There is a diffuse decrease in hepatic parenchymal density, consistent with fatty infiltration. The visualized intra-abdominal structures demonstrate no acute findings. Bones/joints: No acute skeletal pathology. Moderate multilevel degenerative changes of the spine, as manifested by multilevel anterior osteophytes and multilevel decrease in intervertebral disc space. Soft tissues: Unremarkable. IMPRESSION: 1. Nonspecific 7 mm nodule in the left lung base could be related to nodular atelectasis versus a true pulmonary nodule. For patients at low risk (minimal or absent history of smoking and of other known risk factors), recommend CT Chest at 6-12 months, then consider CT Chest at 18-24 months. For patients at high risk (history of smoking or of other known risk factors), recommend CT Chest at 6-12 months, then CT Chest at 18-24 months. (Reference: Moar) 2. Negative for acute thoracic pathology. REFERENCES: Mora Dangelo et al. Guidelines for Management of Incidental Pulmonary Nodules Detected on CT Images: From the Fleischner Society 2017. Radiology. 2017;284(1):228-243.
[2021-01-02] VITALS (17 sets, daily range): BP systolic 107–154; BP diastolic 53–92; PULSE 51–80; RESP 15–20; TEMP 36.1–36.8; O2SAT 94–98; BMI 43.0
--- NOTE | 2021-01-02 | IR_ITS ---
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 COMPLICATIONS NONE Estimated Blood Loss: LESS THAN 10 ML TECHNIQUE One percent lidocaine used to anesthetize the right anterior aspect of the wrist. The right radial artery was accessed via the Seldinger technique. A 6 Chadian sheath was placed in the right radial artery. 2.5 mg of verapamil, 800 mcg of nitroglycerin, 1mg Lidocaine and 5000 U Heparin were given through the arterial sheath. The 6 Chadian Poppa catheter and 6 Chadian J L3 catheter were also used to perform left heart catheterization, left ventriculogram and selective coronary angiogram. At the end of the procedure the sheath was removed good hemostasis was achieved using Traclet band, patient was transferred to the postop holding area in stable condition. ANGIOGRAPHIC RESULTS The left main artery Normal The left anterior descending artery Normal The circumflex artery Normal The right coronary artery Dominant normal The CHRISTIANSON ventriculogram reveals Normal 65% The left ventricular end-diastolic pressure 20 mmHg IMPRESSION Normal coronary arteries Normal ejection fraction Mildly elevated LVEDP PLAN 1. Etiology for the elevated troponin is uncertain. It is possible patient's having a mild form of myocarditis. Recommend supportive care with use of KAYLA inhibitor's and beta-blockers 2. Continue aggressive risk factor modification 3. Follow-up in cardiology clinic within the next week Electronically signed by : Kenton Lyles MD 01/02/2021 11:00:23
[2021-01-02 05:56] LABS: POC Glucose,Bedside 162 (70-110)
[2021-01-02 06:49] LABS: Basophils % 0.5 % (0.1-2.0); Eosinophils # 0.2 K/mm3 (0.0-0.4); Eosinophils % 2.4 % (0.1-12.0); Hematocrit 41.1 % (37.0-47.0); Hemoglobin 13.2 g/dL (12.2-16.2); Lymphocytes % 26.1 % (10-50); Mean Corpuscular HGB Conc 32.1 g/dL (31.8-35.4); Mean Corpuscular Hemoglobin 29.5 pg (27.0-31.2); Mean Platelet Volume 9.7 fl (7.4-10.4); Monocytes # 0.3 K/mm3 (0.1-1.0); Monocytes % 4.3 % (1.7-9.3); Neutrophils % 66.6 % (37.0-80.0); Platelet Count 207 K/mm3 (142-424); Red Blood Count 4.46 M/mm3 (4.20-5.40); Red Cell Distribution Width 13.8 % (11.5-17.5); White Blood Count 7.5 K/mm3 (4.8-10.8)
--- NOTE | 2021-01-02 06:50 | PC.NURSE ---
Addendum entered by Dunia Díaz RN 01/02/21 06:53: continues on RA with no c/o soa. Original Note: pt has rested majority of this shift. a&ox4. uses the bathroom independently. no c/o pain or discomfort voiced this shift.
[2021-01-02 06:56] LABS: Chloride 104 mmol/L (98-107); Potassium 3.6 mmoL/L (3.5-5.1); Sodium 138 mmol/L (136-145)
[2021-01-02 06:58] LABS: Blood Urea Nitrogen 6 mg/dl (7-17); Creatinine Clearance Estimated 148 mL/min (50-200); Estimated Glomerular Filt Rate 182 ml/min (>60); GFR (African American) 220 ML/MIN (>60)
[2021-01-02 06:59] LABS: Anion Gap 9.6 mEq/L (5-15); Calcium 8.6 mg/dl (8.4-10.2); Carbon Dioxide 28 mmol/L (22.0-30.0); Cholesterol 137 mg/dl (140-200); Glucose 166 mg/dl (74-100); Triglycerides 73 mg/dl (30-150); VLDL Cholesterol 15 mg/dL (0-40)
[2021-01-02 07:00] LABS: Chol/HDL Ratio 3.1 (1-3.5); HDL Cholesterol 44 mg/dl (40-60)
[2021-01-02 07:05] LABS: INR 1.01 (0.9-1.1); Prothrombin Time 11.4 seconds (10.1-12.5)
[2021-01-02 07:10] LABS: Direct LDL Cholesterol 83.01 mg/dL (100-129)
[2021-01-02 07:14] LABS: Troponin I 1.65 ng/ml (0.00-0.034)
--- NOTE | 2021-01-02 08:01 | HMH.DCSUM ---
General - General Admission date:: 01/01/21 Discharge date: 01/02/21 HPI HPI: this patient presented 5yo F sent to the emergency department from the urgent treatment clinic secondary to chest pain and some epigastric pain. Patient reports this started earlier today. She reports it is intermittent. She denies any shortness of breath. She denies any breaking out into cold sweat. States the pain starts in the around her right collarbone and radiates down substernal and into her epigastric region. She denies any history of cardiac disease, no coronary stents. Patient has never been a smoker. She is a diabetic. She reports her blood sugars typically run in the 170s to 180s. Routine cardiac work-up is initiated. CBC is benign. Metabolic panel reveals elevated AST, ALT, alk phos. Acute liver panel was added on but there is a send out so not beneficial today. Initial troponin was 0.03. Repeat troponin was ordered and the patient was sent for CT abdomen pelvis given her transaminitis. Abdomen pelvis films reveal a 6 mm left lower lobe nodule that needs follow-up as an outpatient. EKG benign as above. Repeat troponin is 0.44. Patient will obviously need to be admitted for NSTEMI and further monitoring. 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 - Hospital Course Hospital Course: pt with cath- Objective Vital signs: Temp Pulse Resp BP Pulse Ox 97.5 F L 56 L 17 148/64 H 98 01/02/21 04:00 01/02/21 04:00 01/02/21 04:00 01/02/21 04:00 01/02/21 04:00 Results Labs on day of discharge: Labs from last 24 hours 01/02/21 01/02/21 01/02/21 06:13 06:13 06:13 WBC RBC Hgb Hct MCV MCH MCHC RDW Plt Count MPV Neut % (Auto) Lymph % (Auto) [place] % (Auto) Eos % (Auto) Baso % (Auto) Neut # (Auto) Lymph # (Auto) [place] # (Auto) Eos # (Auto) Baso # (Auto) PT 11.4 INR 1.01 Sodium 138 Potassium 3.6 Chloride 104 Carbon Dioxide 28 Anion Gap 9.6 BUN 6 L Creatinine 0.40 L D Estimated Creat Clear 148 Estimated GFR 182 Est GFR ( Amer) 220 D Glucose 166 H POC Glucose Calcium 8.6 Total Bilirubin AST ALT Alkaline Phosphatase Troponin I 1.65 H Total Protein Albumin Globulin Albumin/Globulin Ratio Triglycerides 73 Cholesterol 137 L LDL Cholesterol Direct 83.01 L VLDL Cholesterol 15 HDL Cholesterol 44 Cholesterol/HDL Ratio 3.1 SARS-CoV-2 (PCR) Influenza A Untype (PCR) Influenza Type B (PCR) 01/02/21 01/02/21 01/01/21 06:13 05:17 20:25 WBC 7.5 RBC 4.46 Hgb 13.2 Hct 41.1 MCV 92.0 MCH 29.5 MCHC 32.1 RDW 13.8 Plt Count 207 MPV 9.7 Neut % (Auto) 66.6 Lymph % (Auto) 26.1 [place] % (Auto) 4.3 Eos % (Auto) 2.4 Baso % (Auto) 0.5 Neut # (Auto) 5.0 Lymph # (Auto) 2.0 [place] # (Auto) 0.3 Eos # (Auto) 0.2 Baso # (Auto) 0.0 PT INR Sodium Potassium Chloride Carbon Dioxide Anion Gap BUN Creatinine Estimated Creat Clear Estimated GFR Est GFR ( Amer) Glucose POC Glucose 162 H Calcium Total Bilirubin AST ALT Alkaline Phosphatase Troponin I 1.83 H Total Protein Albumin Globulin Albumin/Globulin Ratio Triglycerides Cholesterol LDL Cholesterol Direct VLDL C
--- NOTE | 2021-01-02 08:41 | P.CONPHA_ITS ---
[facility] Pharmacy VTE Monitoring - Patient Demographics Admission date: 01/02/21 Report Date: 01/02/21 Time: 08:41 Allergies/Adverse Reactions: Patient Allergies No Known Allergies Allergy (Verified 01/01/21 14:08) Height: 1.55 m Weight: 103.419 kg Patient Problems: Current Active Problems NSTEMI (non-ST elevated myocardial infarction) (Acute) Transaminitis (Acute) Chest pain (Acute) - VTE Risk Labs: VTE Related Lab Results Hgb 13.2 g/dL (12.2-16.2) 01/02/21 06:13 Hct 41.1 % (37.0-47.0) 01/02/21 06:13 Plt Count 207 K/mm3 (142-424) 01/02/21 06:13 PT 11.4 seconds (10.1-12.5) 01/02/21 06:13 INR 1.01 (0.9-1.1) 01/02/21 06:13 BUN 6 mg/dl (7-17) L 01/02/21 06:13 Creatinine 0.40 mg/dl (0.52-1.04) L D 01/02/21 06:13 Estimated Creat Clear 148 mL/min (50-200) 01/02/21 06:13 VTE Score: 2 - Prophylaxis Types of VTE Prophylaxis: IPCS Knee High (ICDS ORDERED) Location of Applied Device: Bilateral Lower Extremeties
--- NOTE | 2021-01-02 09:53 | ECG_ITS ---
APPROVED REPORT Exam: Resting ECG HR:63 bpm ECG Measurements Heart Rate 63 AXES NC 150 P 35 QRSd 90 QRS 32 QT 410 T 37 QTc 419 Conclusion Normal sinus rhythm Normal ECG Electronically signed by : Levon Campos MD 01/03/2021 09:04:33
[2021-01-02 10:22] LABS: HCG Qualitative, Serum Negative (Negative)
--- NOTE | 2021-01-02 16:11 | HMH.HPDC ---
General - General Admission date:: 01/01/21 Discharge date: 01/02/21 *Admission Date: 01/02/21 *Chief complaint: chest pain *History of present illness: 35yo F sent to the emergency department from the urgent treatment clinic secondary to chest pain and some epigastric pain. Patient states this started earlier yesterday. She states pain comes and goes, denies any shortness of breath. States the pain starts in the around her right collarbone and radiates down substernal and into her epigastric region. She denies any history of cardiac disease, no coronary stents. She is a diabetic. Patient reports that she had a blood clot back around May or June and she was put on medication and when she went back for her follow up they told her it was gone. while in [facility] patient was coming back from xray she was holding her left breast area and rubbing her chest and reports that she is now having chest pain more so in the left chest area that started after she got the xray States feels like something is wrong in there . patient admitted fr chest pain and discussed with dr kay [facility] History I have reviewed the patient's past medical history: Yes Medical History: Reports:: Deep Vein Thrombosis, Diabetes Mellitus Type 2, Hyperlipidemia, Hypertension Denies:: Cancer, Diabetes Mellitus Type 1, Internal Pacemaker, MRSA, Seizures *Have you ever received a pneumonia vaccine?: No *Have you received a flu vaccine this season?: Yes Other Medical History: Denies: Blood Transfusion Reaction Other Surgeries: Yes: No Previous Surgery, Hernia Repair. No: Pacemaker Amputation: No Fractures: No - *Social History Last grade of school completed: 5th or 6th Smoking Status: Never smoker # Packs/Day (cigarettes): 0 #Yrs smoked (if former smoker): 0 Alcohol Intake: never Alcohol Intake Frequency:: other Substance Use Type: denies use *Occupational Status:: unemployed Housing: house Household Members: spouse *Travel in the last 8 weeks: None Family Hx:: No significant family history Review of Systems - Review of Systems Review of systems:: pertinent systems reviewed and negative unless documented below - Constitutional Denies body ache(s) - Eyes Denies blurry vision - ENT Denies bleeding gums - *Cardiovascular Reports chest pain, Reports chest pain at rest, Reports chest pain with activity, Denies shortness of breath - *Respiratory Denies change in phlegm color - *Gastrointestinal Denies bloating - *Genitourinary Denies abnormal vaginal bleeding - *Musculoskeletal Denies decreased muscle mass - Integumentary/Breasts Denies rash - *Neurologic Denies abnormal hearing, Denies dizziness - Psychiatric Denies lack of enjoyment - Endocrine Denies rapid, pounding, or irregular heartbeat - Hematologic/Lymphatic Denies easy bruising - Allergic/Immunologic Denies itchy eyes Exam Vital signs and Labs for Last 24 Hours: Temp Pulse Resp BP Pulse Ox 97 F L 67 20 117/82 94 L 01/02/21 11:15 01/02/21 11:15 01/02/21 11:15 01/02/21 11:15 01/02/21 11:15 Laboratory Results - last 24 hr 01/01/21 16:20: Troponin I 0.44 H 01/01/21 17:50: SARS-CoV-2 (PCR) Not detected, Influenza A Untype (PCR) Not detected, Influenza Type B (PCR) Not detected 01/01/21 19:45: POC Glucose 114 H 01/01/21 20:25: Troponin I 1.83 H 01/02/21 05:17: POC Glucose 162 H 01/02/21 06:13: WBC 7.5, RBC 4.46, Hgb 13.2, Hct 41.1, MCV 92.0, MCH 29.5, MCHC 32.1, RDW 13.8, Plt Count 207, MPV 9.7, Neut % (Auto) 66.6, Lymph % (Auto) 26.1, [place] % (Auto) 4.3, Eos % (Auto) 2.4, Baso % (Auto) 0.5, Neut # (Auto) 5.0, Lymph # (Auto) 2.0, [place] # (Auto) 0.3, Eos # (Auto) 0.2, Baso # (Auto) 0.0 01/02/21 06:13: PT 11.4, INR 1.01 01/02/21 06:13: Sodium 138, Potassium 3.6, Chloride 104, Carbon Dioxide 28, Anion Gap 9.6, BUN 6 L, Creatinine 0.40 L D, Estimated Creat Clear 148, Estimated GFR 182, Est GFR ( Amer) 220 D, Glucose 166 H, Calcium 8.6, Triglycerides 73,
[2021-01-02 21:49] LABS: POC Glucose,Bedside 152 (70-110)
[2021-01-03 08:12] LABS: Hep A Ab, IgM Negative (Negative); Hepatitis B Core Antibody IgM Negative (Negative); Hepatitis B Surface Antigen Negative (Negative); Hepatitis C Antibody <0.1 s/co ratio (0.0-0.9)
== END 2021-01-02 18:30 | disposition home or self-care (01) | DRG 287 ==
LOC: UTC 13:02 → ER 13:50 → 2ND 01-02 07:19
PROVIDERS: Internal Medicine; Admitting Provider Emergency Medicine; Emergency Provider Family Medicine; Visit Provider Emergency Medicine
PROC: 4A023N7 Measurement of Cardiac Sampling and Pressure, Left Heart, Percutaneous Approach (ICD-10-PCS; principal; 2021-01-02 10:00)
DX: I51.4 Myocarditis, unspecified (principal); Z68.41 Body mass index [BMI] 40.0-44.9, adult; E11.9 Type 2 diabetes mellitus without complications; Z79.4 Long term (current) use of insulin; E78.5 Hyperlipidemia, unspecified; I10 Essential (primary) hypertension; R00.1 Bradycardia, unspecified; E66.01 Morbid (severe) obesity due to excess calories; Z86.718 Personal history of other venous thrombosis and embolism
CPT/HCPCS: 36415; 71046; 71275; 74177; 80048; 80053; 80061; 80074; 82962; 84484; 84703; 85025; 85610; 93005; 93458; 99152; 99285; C1725; C1760; C1769; C1894; C9803; J1644; Q9967; U0003; U0005

== ENCOUNTER → 2021-02-10 12:46 | Outpatient (CLI) | payer OTHER, SELFPAY ==
[2021-02-10 13:23] LABS: Urine Pregnancy, HCG Qual. Negative (Negative)
== END ==
PROVIDERS: Visit Provider Surgery
DX: Z01.812 Encounter for preprocedural laboratory examination (principal); Z11.52 Encounter for screening for COVID-19; R19.09 Other intra-abdominal and pelvic swelling, mass and lump
CPT/HCPCS: 81025; C9803; U0003; U0005

== ENCOUNTER 2021-02-12 07:16 | Day surgery (SDC) | payer OTHER, SELFPAY ==
[2021-02-08 12:55] VITALS: BMI 43.0
[2021-02-12] VITALS (11 sets, daily range): BP systolic 109–145; BP diastolic 43–81; PULSE 63–721; RESP 12–18; TEMP 36.3–38; O2SAT 93–99
--- NOTE | 2021-02-12 09:46 | HMH.ANESCL ---
[facility] Anesthesia Checklist - Structural Data Admitted From: Home Planned Operative Procedure/s: excision umbilical nodule Consent for Planned Operative Procedure(s) Verified: Yes - Additional verifications Anesthesia Reactions: No Hx Blood Transfusions: No Blood Transfusion Reaction: No - Airway Assessment C-Spine Mobility Assessed: Yes TMJ Mobility Assessed: Yes Dentition: Poor Dentition - Neurological Assessment Level of Consciousness: Awake, Alert, Appropriate - Anesthesia Plan Anesthesia Risk discussed: Yes Anesthesia Plan: Verified ASA Class: II Anesthesia Type: General [facility] History I have reviewed the patient's past medical history: Yes Medical History: Reports:: Deep Vein Thrombosis, Diabetes Mellitus Type 2, Hyperlipidemia, Hypertension Denies:: Cancer, Diabetes Mellitus Type 1, Internal Pacemaker, MRSA, Seizures *Have you ever received a pneumonia vaccine?: No *Have you received a flu vaccine this season?: Yes Other Medical History: Denies: Blood Transfusion Reaction Anesthesia experience/problems:: none Other Surgeries: Yes: No Previous Surgery, Hernia Repair, Other. No: Pacemaker Amputation: No Fractures: No - *Social History Smoking Status: Never smoker # Packs/Day (cigarettes): 0 #Yrs smoked (if former smoker): 0 Alcohol Intake: never Alcohol Intake Frequency:: other Substance Use Type: denies use *Occupational Status:: unemployed Housing: house Household Members: spouse *Travel in the last 8 weeks: None Family Hx:: No significant family history
--- NOTE | 2021-02-12 10:27 | P.OP_ITS ---
Date of procedure: 02/12/21 Pre-op Diagnosis:: Umbilical mass/nonhealing proud flesh (status post umbilical hernia repair with Ventralex mesh) Post-op Diagnosis:: Same Procedure performed:: Excision of nonhealing proud flesh from umbilical base Surgeon:: Dennys Medrano MD [employer] Architect(s):: Gracie NETWORK ACCOUNT MANAGER:: Hoang Lambert Anesthesia: LMA Estimated blood loss (mL): 15 Operative findings:: Proud flesh/small fistula formation at umbilical base (at Ventralex mesh site) Operative note:: After informed consent was obtained the patient was taken to the operating room and placed in the supine position. General anesthesia with laryngeal mask airway was achieved. Her abdomen was prepped and draped in a sterile fashion. After infiltration local anesthetic a curvilinear incision below the umbilicus was completed with sharp dissection and electrocautery. The deep subcutaneous tissue was dissected with electrocautery as the umbilical stump was elevated. The umbilical stump was transected. A nodule of proud flesh/fistula formation at the base of the umbilicus (site of Ventralex) was noted. This nodular tissue was excised with electrocautery. The site was imbricated with interrupted 0 Ethibond. The defect in the umbilicus was reapproximated with interrupted 4-0 nylon. The infraumbilical incision was closed in the same manner. Dressings were applied and the patient was transferred recovery in stable condition after removal of her laryngeal mask airway. Condition: stable Disposition: PACU Specimens:: None Complications:: No immediate
--- NOTE | 2021-02-12 10:36 | HMH.ANESI ---
[facility] Anesthesia Record Part I Intake, IV Amount: 1,500 Estimated blood loss (mL): 20 Urine output (mL): 0 Blood Pressure: 118/81 SaO2: 93 Pulse Rate: 79 Respiratory Rate: 12 Temperature: 97.9 F Patient is:: Awake, Stable Stable to PACU at:: 10:35
[2021-02-12 10:49] LABS: POC Glucose,Bedside 124 (70-110)
--- NOTE | 2021-02-15 13:10 | HMH.ANESII ---
[facility] Anesthesia Record Part II Discharge Time: 11:05 Destination: Surgical Day Care (OP Surgery) PACU nurse assessment reviewed?: Yes Patient Condition:: Good Anesthesia Complications:: None Swallowing reflex intact?: Yes Cyanosis?: No Blood Pressure: 116/73 Pulse Rate: 67 Temperature: 98.4 F Mental Status: Alert & Oriented Pain level:: 0 Nausea and/or vomitting:: None Intake, IV Amount: 0
[2021-02-15 13:11] VITALS: BP 116/73; PULSE 67; TEMP 36.9
[2021-12-02 10:55] LABS: POC Glucose,Bedside 158 (70-110)
== END 2021-02-12 11:57 | disposition home or self-care (01) ==
LOC: OR 07:17
PROVIDERS: PCP Nurse Practitioner Family; Visit Provider Surgery
PROC: (CPT 49250; principal; 2021-02-12 08:30)
DX: T81.89XA Other complications of procedures, not elsewhere classified, initial encounter (principal); R19.09 Other intra-abdominal and pelvic swelling, mass and lump; L92.9 Granulomatous disorder of the skin and subcutaneous tissue, unspecified; Z86.718 Personal history of other venous thrombosis and embolism; E11.9 Type 2 diabetes mellitus without complications; E78.5 Hyperlipidemia, unspecified; I10 Essential (primary) hypertension; Z79.899 Other long term (current) drug therapy; Z79.82 Long term (current) use of aspirin
CPT/HCPCS: 49250; 82962; 96374; J2405